=== PATIENT | male | born 1945 | race Caucasian/White ===

== ENCOUNTER 2016-09-10 11:51 | Inpatient (IN) | payer MEDICARE, BC ==
[~2016-09-10] VITALS: Ht 180.3 cm; Wt 90.7 kg
[2016-09-10] MEDS ORDERED: METOPROLOL TARTRATE 5 MG/5 ML VIAL IVP ONE ×7 (12:15→15:54)
[2016-09-10 12:31] LABS: BASOPHILS # (AUTO) 0.1 K/uL (0.0-8.0); BASOPHILS % (AUTO) 1.1 % (0.0-2.0); EOSINOPHILS # (AUTO) 0.1 K/uL (0.0-0.7); EOSINOPHILS % (AUTO) 1.1 % (0.0-7.0); HEMATOCRIT 50.8 % (40-50); HEMOGLOBIN 16.6 G/DL (14.0-18.0); LYMPHOCYTES # (AUTO) 2.2 K/UL (0.8-4.8); MEAN CORPUSCULAR HEMOGLOBIN 29.3 UUG (27.0-31.0); MEAN CORPUSCULAR HGB CONC 33 g/dL (32.0-37.0); MEAN CORPUSCULAR VOLUME 89.5 FL (82.0-92.0); MONOCYTES # (AUTO) 0.8 K/UL (0.1-1.30); MONOCYTES % (AUTO) 10.5 % (0.0-11.0); NEUTROPHILS # (AUTO) 4.8 K/UL (1.8-8.9); NEUTROPHILS % (AUTO) 59.3 % (38.5-71.5); PLATELET COUNT (AUTO) 157 K/UL (150-450); RED BLOOD CELL COUNT(AUTO) 5.67 MIL/UL (4.7-6.1)
[2016-09-10 12:40] LABS: CREATININE 1.1 mg/dL (0.6-1.3); POTASSIUM 4.6 mmol/L (3.5-5.1)
--- NOTE | 2016-09-10 12:43 | NUR ---
PT IS IN ROOM #1A. DR STOREY EVALUATED THE PT.
[2016-09-10 12:45] LABS: DIGOXIN 0.6 ng/mL (0.9-2.0)
[2016-09-10] MEDS ORDERED: TIMO5SOL11 OP (12:50)
[2016-09-10] MEDS ORDERED: BIMA2.5D5 EACHEYE (12:50)
[2016-09-10] MEDS ORDERED: TAMS0.4C34 PO (12:50)
[2016-09-10] MEDS ORDERED: DIGO125T PO (12:50)
[2016-09-10] MEDS ORDERED: METO25TA6 PO (12:50)
[2016-09-10] MEDS ORDERED: ASPI81TA31 PO (12:50)
[2016-09-10 12:53] LABS: THYROID STIMULATING HORMONE 1.34 mIU/mL (0.358-3.740)
[2016-09-10 12:57] LABS: BILIRUBIN,DIRECT 0.2 mg/dL (0.0-0.2); BILIRUBIN,TOTAL 0.8 mg/dL (0.2-1.0)
[2016-09-10] MEDS ORDERED: DIGOXIN 500 MCG/2 ML AMP IV ONE (13:15)
[2016-09-10] MEDS ORDERED: DIGOXIN 500 MCG/2 ML AMP ONE (13:39)
--- NOTE | 2016-09-10 15:50 | NUR ---
REPORT WAS GIVEN TO RN [facility]. PT WAS TRANSFERED TO [facility] ROOM #215.
--- NOTE | 2016-09-10 16:14 | NUR ---
ADMITTED 71 YEAR OLD MALE FROM HOME VIA ER ACCOMPANIED BY WITH ADMITTING DX. OF CHEST PAIN AND A.FIB. ALERT AND OREINTED X3. NO SIGNS OF PAIN OR DISTRESS. A FIB CONTROLLED ON MONITOR. SEEN BY DR. HERNANDEZ WITH ORDERS. INITIAL ASSESSMENT INITIATED, WILL CONT [facility] MONITORING.
[2016-09-10 16:31] VITALS: BP 119/58
[2016-09-10] MEDS ORDERED: MAGNESIUM HYDROXIDE 30 ML LIQUID UDC PO PRN (17:30)
[2016-09-10] MEDS ORDERED: ONDANSETRON 4 MG/2 ML VIAL IV PRN (17:30)
[2016-09-10] MEDS ORDERED: MORPHINE SULFATE 2 MG/1 ML DISP.SYRIN IV PRN (17:30)
[2016-09-10] MEDS ORDERED: RIVAROXABAN 15 MG TABLET PO SCH (17:30)
[2016-09-10] MEDS ORDERED: ZOLPIDEM 5 MG TABLET PO PRN (17:30)
[2016-09-10] MEDS ORDERED: ACETAMINOPHEN 325 MG TABLET PO PRN (17:30)
[2016-09-10] MEDS ORDERED: AMIODARONE HCL IV 150 MG in IV DEXTROSE 5% 100 ML IV ONE (17:45)
[2016-09-10] MEDS ORDERED: HEPARIN/D5W DRIP 500 ML IV PRN ×2 (17:45→23:00)
[2016-09-10] MEDS ORDERED: AMIODARONE HCL IV 900 MG in IV DEXTROSE 5% 482 ML IV PRN (17:45)
[2016-09-10] MEDS ORDERED: DIGOXIN 125 MCG TABLET PO SCH (18:00)
[2016-09-10] MEDS ORDERED: TIMOLOL MALEATE XE 0.5% OPHT 5 ML BOTTLE EACHEYE SCH (18:00)
[2016-09-10] MEDS ORDERED: METOPROLOL TARTRATE 25 MG TABLET PO SCH (18:00)
[2016-09-10] MEDS ORDERED: BIMATOPROST 0.01% OPHT DROP 2.5 ML BOTTLE EACHEYE SCH (18:00)
--- NOTE | 2016-09-10 18:11 | NUR ---
SEEN BY DR KRUGER WITH ORDERS, SPOKE TO AND DISCUSSED TX PLAN. WILL START PT ON HEPARIN DRIP AND AMIODARONE DRIP. PATIENT REMAINS A-FIB CONTROLLED AND UNCONTROLLED BUT ASSYMPTOMATIC
[2016-09-10] MEDS ORDERED: HEPARIN SODIUM,PORCINE 5,000 UNITS/ML VIAL IV ONE ×2 (18:45→23:00)
[2016-09-10 19:00] VITALS: BP 104/60
[2016-09-10] MEDS: LATANOPROST OPHT DROP 2.5 ML BOTTLE EACHEYE SCH (20:30)
[2016-09-10] MEDS ORDERED: ASPIRIN EC 325 MG TABLET.DR PO SCH (21:00)
[2016-09-10] MEDS ORDERED: TAMSULOSIN HCL 0.4 MG CAP.SR.24H PO SCH (21:00)
[2016-09-10] MEDS ORDERED: LATANOPROST OPHT DROP 2.5 ML BOTTLE EACHEYE SCH (21:00)
[2016-09-10] MEDS ORDERED: SIMVASTATIN 20 MG TABLET PO SCH (21:00)
[2016-09-10] MEDS ORDERED: DOCUSATE SODIUM 100 MG CAPSULE PO SCH (21:00)
--- NOTE | 2016-09-10 21:30 | NUR ---
Personal CPAP brought in by , patient refused to use tonight his own CPAP. Addendum: 09/11/16 at 0603 by JOCELINE OROUKRE RN Pls disregard above notes. Error
--- NOTE | 2016-09-10 21:31 | NUR ---
Patient's personal CPAP brought in by , patient refused to use his own CPAP tonight.
--- NOTE | 2016-09-10 22:40 | NUR ---
Heparin drip started & followed Weight -based Heparin dosing protocol: 1600 units/hr (pt's wt 90kg)= 32ml/hr drip rate. Current PTT 33, PT 12, INR 1.17
--- NOTE | 2016-09-11 00:10 | NUR ---
Patient c/o insomnia & headache, Ambien 5mg & Tylenol 650mg po adm.
[2016-09-11 00:38] VITALS: BP 99/55
--- NOTE | 2016-09-11 00:40 | NUR ---
Heart rhythm converted to sinus rhythm.
--- NOTE | 2016-09-11 01:00 | NUR ---
Cordarone drip rate adjusted to 0.5 mg/min (16.6 ml/hr). Patient resting comfortably current V/S BP 104/60, HR 104. monitor tech shows normal sinus rhythm HR 78/min.
[2016-09-11 04:00] VITALS: BP 95/63
--- NOTE | 2016-09-11 05:30 | NUR ---
Amiodarone drip held for now due to low BP 95/63 w/ HR 55. Patient remains asleep. Sinus eb on the monitor.
--- NOTE | 2016-09-11 05:56 | NUR ---
Called lab for 0500Am timed PTT result, but no result yet.
[2016-09-11] MEDS: METOPROLOL TARTRATE 25 MG TABLET PO SCH ×2 (06:00→17:39)
--- NOTE | 2016-09-11 06:42 | NUR ---
Assisted to the bathroom, patient stated he feels "human" again.
[2016-09-11] MEDS ORDERED: PANTOPRAZOLE SODIUM 40 MG TABLET.DR PO SCH (07:00)
--- NOTE | 2016-09-11 07:00 | NUR ---
Amiodarone [place] resued Addendum: 09/11/16 at 0708 by JOCELINE OROURKE RN pls disregard above notes. Error
--- NOTE | 2016-09-11 07:01 | NUR ---
Amiodarone drip resumed, Tele show sinus rhythm-sinus tach HR 90s 100s after bathroom use.
--- NOTE | 2016-09-11 07:01 | NUR ---
PTT 95.1 HEPARIN DRIP HELD X1 HR. PT RESTING NO SIGNS OF DISTRESS OR C/O PAIN. REMAINS AFIB CONTROLLED ON MONITOR
[2016-09-11 07:38] LABS: BILIRUBIN,TOTAL 0.6 mg/dL (0.2-1.0); CREATININE 1.1 mg/dL (0.6-1.3); MAGNESIUM 2.1 mg/dL (1.8-2.4); PHOSPHOROUS 3.5 mg/dL (2.5-4.9); POTASSIUM 3.8 mmol/L (3.5-5.1); TOTAL PROTEIN, SERUM 6.1 g/dL (6.4-8.2)
[2016-09-11 07:52] LABS: EOSINOPHILS # (AUTO) 0.1 K/uL (0.0-0.7); EOSINOPHILS % (AUTO) 1.2 % (0.0-7.0); HEMATOCRIT 47.2 % (40-50); HEMOGLOBIN 15.7 G/DL (14.0-18.0); LYMPHOCYTES # (AUTO) 2.4 K/UL (0.8-4.8); LYMPHOCYTES % (AUTO) 30.8 % (20.5-51.5); MEAN CORPUSCULAR HEMOGLOBIN 30.2 UUG (27.0-31.0); MEAN CORPUSCULAR HGB CONC 33 g/dL (32.0-37.0); MEAN CORPUSCULAR VOLUME 90.7 FL (82.0-92.0); MONOCYTES # (AUTO) 0.8 K/UL (0.1-1.30); MONOCYTES % (AUTO) 10.2 % (0.0-11.0); NEUTROPHILS # (AUTO) 4.4 K/UL (1.8-8.9); NEUTROPHILS % (AUTO) 57.8 % (38.5-71.5); RED BLOOD CELL COUNT(AUTO) 5.21 MIL/UL (4.7-6.1); WHITE BLOOD COUNT (AUTO) 7.7 K/UL (4.0-11.2)
[2016-09-11 08:00] VITALS: BP 101/61
--- NOTE | 2016-09-11 08:00 | NUR ---
AWAKE ALERT , SR/SB ON MONITOR WITH AMIODARONE DRIP PER PROTOCOL. DENIES CHEST PAIN
[2016-09-11 08:02] LABS: PLATELET COUNT (AUTO) 133 K/UL (150-450)
[2016-09-11] MEDS ORDERED: TIMOLOL MALEATE XE 0.5% OPHT 5 ML BOTTLE EACHEYE SCH ×2 (09:00)
--- NOTE | 2016-09-11 12:00 | NUR ---
NO ACUTE CHANGE, VS STABLE. UP AND ABOUT TO BATHROOM WITH VISUAL ASSIST. DENIES BRITTNI
[2016-09-11 12:08] VITALS: BP 113/67
[2016-09-11] MEDS ORDERED: HEPARIN/D5W DRIP 500 ML IV PRN (15:00)
--- NOTE | 2016-09-11 15:41 | NUR ---
CONTINUE CURRENT TX HEPARIN AND AMIODARONE DRIP PER PROTOCOL. DENIES PAIN OR DISTRESS
[2016-09-11 16:10] VITALS: BP 108/68
[2016-09-11] MEDS: LATANOPROST OPHT DROP 2.5 ML BOTTLE EACHEYE SCH (17:37)
--- NOTE | 2016-09-11 19:40 | NUR ---
RECEIVED PATIENT ALERT, ORIENTED.IN NO ACUTE DISTRESS,VITAL SIGNS STABLE,NSR ON MONITOR, PATIENT WAS SEEN BY MENDEZ FRANZ FOR PATIENT TO BE DISCHARGED HOME, DR. HERNANDEZ NOTIFIED.
[2016-09-11 20:02] VITALS: BP 112/73
[2016-09-11] MEDS ORDERED: DABI150C PO (20:18)
[2016-09-11] MEDS ORDERED: SIMV20TA6 PO (20:18)
--- NOTE | 2016-09-11 21:21 | NUR ---
PATIENT SEEN BY ,DISCHARGED INSTRUCTIONS GIVEN, PATIENT VERBALIZED UNDERSTANDING,HEPARIN LOCK D/C IN LEFT HAND, RIGHT ARM WAS NOTED SWOLLEN AND SLIGHTLY REDNESS,ICE PACK GIVEN AND INSTRUCTED PATIENT TO KEEP RT. ARM ELEVATED ON PILLOW.PT. DISCHARGED HOME IN STABLE CONDITION.
== END 2016-09-11 21:10 | disposition home or self-care (01) | DRG 310 ==
LOC: ER 11:53 → TELE-TD 15:50
PROVIDERS: ADMIT Internal Medicine; ATTEND Internal Medicine
PROC: 3E053RZ Introduction of Antiarrhythmic into Peripheral Artery, Percutaneous Approach (ICD-10-PCS; principal; 2016-09-10)
DX: I48.0 Paroxysmal atrial fibrillation (principal); Z79.82 Long term (current) use of aspirin; Z80.3 Family history of malignant neoplasm of breast; H40.9 Unspecified glaucoma; G47.33 Obstructive sleep apnea (adult) (pediatric); E78.5 Hyperlipidemia, unspecified; N40.0 Benign prostatic hyperplasia without lower urinary tract symptoms; Z79.899 Other long term (current) drug therapy; Z86.73 Personal history of transient ischemic attack (TIA), and cerebral infarction without residual deficits; K21.9 Gastro-esophageal reflux disease without esophagitis; K59.00 Constipation, unspecified; Z91.14 Patient's other noncompliance with medication regimen
CPT/HCPCS: 36415; 70030-TC; 71010; 83735; 84100; 84443; 85025; 85730; 93005; 93307; A4663; J0282; J1160; J1644; J3490; J3590; J7060